=== PATIENT | female | born 1935 | race Caucasian/White ===

== ENCOUNTER 2017-12-23 13:23 | Inpatient (IN) | payer MEDICARE, MEDICAID ==
[~2017-12-23] VITALS: Ht 162.6 cm; Wt 68.0 kg
[~2017-12-23 13:23] MED LIST: AMBIEN5 MG ORAL; AMLODIPINE BESY10 MG ORAL; ATORVASTATIN CA20 MG ORAL; CARVEDILOL6.25 MG ORAL; DEPAKOTE500 MG PO; EFFEXOR XR37.5 MG ORAL; FISH OIL 1,2001 EAC2 PO; IRON18 M1 PO; LEVOTHYROXINE25 MCG ORAL; NORVASC2.5 MG ORAL; NUVIGIL150 MG PO; PANTOPRAZOLE SO40 MG ORAL; PROTONIX40 MG ORAL; PROZAC40 MG ORAL; QUETIAPINE FUM100 MG ORAL; SIMVASTATIN40 MG ORAL; SPIRIVA18 MCG INH; TOVIAZ4 MG PO; VITAMIN B COMP1 EAC2 ORAL; VITAMIN C500 M1 ORAL; WELLBUTRIN XL150 M1 ORAL
--- NOTE | 2017-12-23 13:42 | Emergency Room Report ---
History of Present Illness General Chief Complaint: To Be Triaged Source: Patient Present Illness HPI 82-year-old female, presenting with episode of right lower ext weakness. Patient states that she was eating lunch, suddenly felt that her right leg went very numb. States that she was dragging her right foot. Denies any headache, slurred speech, blurry vision. Patient states that a few minutes later she again her strength and sensation back. No other complaints Allergies: Coded Allergies: BUPROPION (Verified Allergy, dizziness, 08/09/13) added to allergies by Dr. Rodriguez Patient History Past Medical History: see triage record Past Surgical History: none Pertinent Family History: none Reviewed Nursing Documentation: PMH: Agreed, PSxH: Agreed Review of Systems All Other Systems: negative except mentioned in HPI Physical Exam Sp02 EP Interpretation: reviewed, normal General Appearance: normal inspection, well appearing, no apparent distress, alert, GCS 15, non-toxic Head: normocephalic, atraumatic Eyes: bilateral eye normal inspection, bilateral eye PERRL, bilateral eye EOMI ENT: normal ENT inspection, normal pharynx, normal voice, moist mucus membranes Neck: normal inspection, full range of motion, supple Respiratory: normal inspection, lungs clear, normal breath sounds, no respiratory distress, no retraction, no wheezing, speaking full sentences, chest symmetrical Cardiovascular #1: normal inspection, regular rate, rhythm, no edema, normal capillary refill Cardiovascular #2: 2+ radial (R), 2+ radial (L) Gastrointestinal: normal inspection, non tender, soft, non-distended, no guarding Musculoskeletal: normal inspection, back normal, normal range of motion, non- tender Neurologic: normal inspection, alert, oriented x3, responsive, auditing specialist III-XII nml as tested, motor strength/tone normal, sensory intact, speech normal Psychiatric: normal inspection, judgement/insight normal, memory normal Skin: normal inspection, normal color, no rash, warm/dry, well hydrated, normal turgor Medical Decision Making Diagnostic Impression: Primary Impression: TIA (transient ischemic attack) ER Course 82-year-old female with episode of right lower extremity weakness DDX: Rule out TIA/CVA Hypoglycemia Other electrolyte disturbance Plan: Obtain labs, ua, EKG, CXR CT head ER course: Patient has been monitored during ED stay, HD stable Remains awake alert and neurologically intact CT head is negative Disposition: Patient is to be admitted to [facility] Please note that this Emergency Department Report was dictated using Ideaxisb[employer] checker technology software, occasionally this can lead to erroneous entry secondary to interpretation by the dictation equipment. EKG Diagnostic Results EP Interpretation: Yes Rate: normal Rhythm: NSR ST Segments: TWI aVL ASA given to patient: No Rhythm Strip EP Interpretation: Yes Rate: 120 Rhythm: NSR, no PVCs, no ectopy Chest X-ray CXR: Ordered: Yes 1 view Indication:cva EP interpretation: Yes Interpretation: No consolidation, no effusion, no PTX, no acute cardiopulmonary disease, hepatic flexure visualized Impression: No acute disease Electronically signed by Marina Green MD Laboratory Tests Test 12/23/17 13:55 12/23/17 14:55 12/23/17 15:30 White Blood Count 8.2 K/UL (4.8-10.8) Red Blood Count 4.31 M/UL (4.20-5.40) Hemoglobin 13.0 G/DL (12.0-16.0) Hematocrit 39.1 % (37.0-47.0) Mean Corpuscular Volume 91 FL (80-99) Mean Corpuscular Hemoglobin 30.2 PG (27.0-31.0) Mean Corpuscular Hemoglobin Concent 33.4 G/DL (32.0-36.0) Red Cell Distribution Width 13.0 % (11.6-14.8) Platelet Count 250 K/UL (150-450) Mean Platelet Volume 6.1 FL (6.5-10.1) L Neutrophils (%) (Auto) 61.9 % (45.0-75.0) Lymphocytes (%) (Auto) 27.0 % (20.0-45.0) Monocytes (%) (Auto) 7.5 % (1.0-10.0) Eosinophils (%) (Auto) 2.4 % (0.0-3.0) Basophils (%) (Auto) 1.2 % (0.0-2.0) Prothrombin Time 10.0 SEC (9.30-11.50) Prothrombin Time INR 1.0 (0.9-1.1) PTT 29 SEC (23-33) Sodium Level 138 MMOL/L (136-145) Potassium Level 4.8 MMOL/L (3.5-5.1) Chloride Level 104 MMOL/L (98-107) Carbon Dioxide Level 28 MMOL/L (21-32) Anion Gap 6 mmol/L (5-15) Blood Urea Nitrogen 39 mg/dL (7-18) H Creatinine 2.7 MG/DL (0.55-1.30) H Estimate Glomerular Filtration Rate mL/min (>60) Glucose Level 105 MG/DL (74-106) Calcium Level 9.7 MG/DL (8.5-10.1) Total Bilirubin 0.2 MG/DL (0.2-1.0) Aspartate Amino Transferase (AST) 23 U/L (15-37) Alanine Aminotransferase (ALT) 21 U/L (12-78) Alkaline Phosphatase 102 U/L (46-116) Troponin I 0.006 ng/mL (0.000-0.056) Pro-B-Type Natriuretic Peptide 2586 pg/mL (0-125) H Total Protein 7.2 G/DL (6.4-8.2) Albumin 3.5 G/DL (3.4-5.0) Globulin 3.7 g/dL Albumin/Globulin Ratio 0.9 (1.0-2.7) L Urine Color Yellow Urine Appearance Clear Urine pH 6.5 (4.5-8.0) Urine Specific [place] 1.010 (1.005-1.035) Urine Protein 3+ (NEGATIVE) H Urine Glucose (UA) Negative (NEGATIVE) Urine Ketones Negative (NEGATIVE) Urine Occult Blood Negative (NEGATIVE) Urine Nitrite Negative (NEGATIVE) Urine Bilirubin Negative (NEGATIVE) Urine Urobilinogen Normal MG/DL (0.0-1.0) Urine Leukocyte Esterase 3+ (NEGATIVE) H Urine RBC 2-4 /HPF (0 - 2) H Urine WBC 15-20 /HPF (0 - 2) H Urine Squamous Epithelial Cells Moderate /LPF (NONE/OCC) H Urine Bacteria Occasional /HPF (NONE) C-Reactive Protein, Quantitative < 0.4 mg/dL (0.00-0.90) CT/MRI/US Diagnostic Results CT/MRI/US Diagnostic Results : Imaging Test Ordered: CT head Impression Impression: No acute intracranial bleed, mass effect or edema. Moderate atrophy of the brain. Evidence of chronic small vessel disease involving white matter tracts. Critical value communication. Findings were discussed via telephone with Dr. Green at 1:48 PM, 12/23/2017 . Disposition: ADMITTED INPATIENT Condition: Serious Marina Green M.D. Dec 23, 2017 13:42
--- NOTE | 2017-12-23 13:55 | Diagnostic Imaging Report ---
Indication: Right-sided weakness. Code stroke Technique: Contiguous 5 mm thick transaxial imaging of the head obtained in a Siemens Sensation [address] scanner. Soft tissue and bone windows generated. Automatic Exposure Control was utilized. Total Dose length Product (DLP): 1369.[address] Dose Index Volume (CTDIvol): 70.38 mGy Comparison: none Findings: There is moderate prominence of the ventricles, basal cisterns, and cerebral sulci consistent with atrophy. Moderate, nonspecific, white matter hypoattenuation is noted throughout the brain consistent with chronic small vessel disease. There is no midline shift, edema, acute hemorrhage, mass effect, or abnormal extra-axial fluid collections. Bones and extra osseous soft tissues are unremarkable. Impression: No acute intracranial bleed, mass effect or edema. Moderate atrophy of the brain. Evidence of chronic small vessel disease involving white matter tracts. Critical value communication. Findings were discussed via telephone with Dr. Green at 1:48 PM, 12/23/[address] scanner at [facility] is accredited by the [employer] and the scans are performed using dose optimization techniques as appropriate to a performed exam including Automatic Exposure control.
[2017-12-23 14:03] VITALS: BP 123/65
[2017-12-23 14:18] LABS: BASOPHILS % (AUTO) 1.2 % (0.0-2.0); EOSINOPHILS % (AUTO) 2.4 % (0.0-3.0); HEMATOCRIT 39.1 % (37.0-47.0); MEAN CORPUSCULAR VOLUME 91 FL (80-99); MONOCYTES % (AUTO) 7.5 % (1.0-10.0); NEUTROPHILS % (AUTO) 61.9 % (45.0-75.0); PLATELET COUNT 250 K/UL (150-450); RED BLOOD COUNT 4.31 M/UL (4.20-5.40); WHITE BLOOD COUNT 8.2 K/UL (4.8-10.8)
[2017-12-23 14:27] LABS: ANION GAP 6 mmol/L (5-15); BLOOD UREA NITROGEN 39 mg/dL (7-18); CALCIUM 9.7 MG/DL (8.5-10.1); CARBON DIOXIDE 28 MMOL/L (21-32); CHLORIDE 104 MMOL/L (98-107); CREATININE 2.7 MG/DL (0.55-1.30); POTASSIUM 4.8 MMOL/L (3.5-5.1); SODIUM 138 MMOL/L (136-145)
--- NOTE | 2017-12-23 14:35 | Diagnostic Imaging Report ---
Indication: Dyspnea Comparison: None A single view chest radiograph was obtained. Findings: There is a nodular density in the lateral aspect of the right mid lung. Heart size is normal. There is no definite infiltrate. There is suggestion of mild left basal atelectasis. Part of the hepatic flexure of the colon is seen just below the right hemidiaphragm. The aorta is mildly ectatic. Bones are osteopenic. There is a pacemaker on the left. IMPRESSION: Suspected solitary pulmonary nodule the right peripheral midlung. Suggest further workup and clinical evaluation. Interposition of the hepatic flexure between the diaphragm and liver. This is a normal variant. Pacemaker. Osteoporosis
[2017-12-23 14:38] LABS: ALANINE AMINOTRANSFERASE 21 U/L (12-78); ALBUMIN 3.5 G/DL (3.4-5.0); ALBUMIN/GLOBULIN RATIO 0.9 (1.0-2.7); ALKALINE PHOSPHATASE 102 U/L (46-116); ASPARTATE AMINO TRANSFERASE 23 U/L (15-37); BILIRUBIN,TOTAL 0.2 MG/DL (0.2-1.0)
[2017-12-23 15:00] VITALS: BP 173/79
[2017-12-23 15:28] LABS: APPEARANCE,URINE CLEAR; BILIRUBIN, URINE NEGATIVE (NEGATIVE); COLOR,URINE YELLOW; GLUCOSE, URINE (UA) NEGATIVE (NEGATIVE); KETONES,URINE NEGATIVE (NEGATIVE); LEUKOCYTE ESTERASE ,URINE 3+ (NEGATIVE); NITRITE,URINE NEGATIVE (NEGATIVE); PH,URINE 6.5 (4.5-8.0); PROTEIN,URINE 3+ (NEGATIVE); UROBILINOGEN,URINE NORMAL MG/DL (0.0-1.0)
[2017-12-23 16:00] VITALS: BP 172/72
--- NOTE | 2017-12-23 16:40 | Consultation ---
Consult Note Consult Note asked to eval for renal failure HPI 82-year-old female, presenting with episode of right lower beebe he weakness. Patient states that she was eating lunch, suddenly felt that her right leg went very numb. States that she was dragging her right foot. Denies any headache, slurred speech, blurry vision. Patient states that a few minutes later she again her strength and sensation back. No other complaints Allergies: Coded Allergies: BUPROPION (Verified Allergy, dizziness, 08/09/13) added to allergies by Dr. 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
[2017-12-23] MEDS ORDERED: HydrALAZINE 25mg tab ORAL PRN (16:45)
[2017-12-23] MEDS: Docusate 100mg cap ORAL SCH (18:42)
[2017-12-23] MEDS: cefTRIAXone 1 GM in NS 55 ML IVPB SCH (18:44)
[2017-12-23] MEDS ORDERED: Acetaminophen 500mg (ES) tab ORAL PRN (19:15)
[2017-12-23 20:00] VITALS: BP 178/82
[2017-12-23] MEDS: Atorvastatin 20mg tab ORAL SCH (21:17)
[2017-12-23] MEDS: Carvedilol 6.25mg Tab ORAL SCH (21:17)
[2017-12-24] VITALS: BP 153/70
[2017-12-24 04:00] VITALS: BP 150/65
[2017-12-24 07:29] LABS: EOSINOPHILS % (AUTO) 3.2 % (0.0-3.0); HEMOGLOBIN 12.9 G/DL (12.0-16.0); LYMPHOCYTES % (AUTO) 25.6 % (20.0-45.0); MEAN CORPUSCULAR VOLUME 90 FL (80-99); MONOCYTES % (AUTO) 7.4 % (1.0-10.0); NEUTROPHILS % (AUTO) 62.8 % (45.0-75.0); PLATELET COUNT 229 K/UL (150-450); RED BLOOD COUNT 4.24 M/UL (4.20-5.40); WHITE BLOOD COUNT 8.1 K/UL (4.8-10.8)
[2017-12-24 08:00] VITALS: BP 134/88
[2017-12-24 08:03] LABS: ALANINE AMINOTRANSFERASE 21 U/L (12-78); ALBUMIN 3.4 G/DL (3.4-5.0); ALBUMIN/GLOBULIN RATIO 0.9 (1.0-2.7); ALKALINE PHOSPHATASE 93 U/L (46-116); ANION GAP 8 mmol/L (5-15); ASPARTATE AMINO TRANSFERASE 22 U/L (15-37); BILIRUBIN,TOTAL 0.4 MG/DL (0.2-1.0); BLOOD UREA NITROGEN 37 mg/dL (7-18); CALCIUM 9.9 MG/DL (8.5-10.1); CARBON DIOXIDE 27 MMOL/L (21-32); CHLORIDE 105 MMOL/L (98-107); CHOLESTEROL 230 MG/DL (< 200); CREATININE 2.7 MG/DL (0.55-1.30); GAMMA GLUTAMYL TRANSPEPTIDASE 35 U/L (5-85); HDL CHOLESTEROL 57 MG/DL (40-60); PHOSPHORUS 3.6 MG/DL (2.5-4.9); POTASSIUM 5.2 MMOL/L (3.5-5.1); SODIUM 140 MMOL/L (136-145); TRIGLYCERIDES 186 MG/DL (30-150)
--- NOTE | 2017-12-24 09:48 | Nephrology Progress Note ---
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 Plan Plan: Renal diet Rocephin- Kidney LIEN 2D Echo Monitor renal parameters per orders pulm eval Subjective ROS Limited/Unobtainable: No Objective Objective Last 24 Hour Vital Signs Date Time Temp Pulse Resp B/P (MAP) Pulse Ox O2 Delivery O2 Flow Rate FiO2 12/24/17 04:00 60 12/24/17 04:00 97.3 61 19 150/65 91 97.3 12/24/17 00:00 97.5 60 20 153/70 92 Room Air 97.5 12/24/17 00:00 60 12/23/17 21:17 60 178/82 12/23/17 20:00 96.4 60 20 178/82 93 Room Air 96.4 12/23/17 20:00 60 12/23/17 18:43 60 188/84 12/23/17 16:15 98.2 60 19 172/72 97 Room Air 98.2 12/23/17 16:00 60 19 172/72 97 Room Air 12/23/17 15:00 90 19 173/79 97 Room Air 12/23/17 14:03 98.2 62 19 123/65 97 Room Air 98.2 12/23/17 13:25 67 16 123/65 94 Room Air Intake and Output 12/23/17 12/24/17 19:00 07:00 Intake Total 240 ml Balance 240 ml Intake Oral 240 ml # Voids 1 3 Laboratory Tests 12/23/17 13:55: White Blood Count 8.2, Red Blood Count 4.31, Hemoglobin 13.0, Hematocrit 39.1, Mean Corpuscular Volume 91, Mean Corpuscular Hemoglobin 30.2, Mean Corpuscular Hemoglobin Concent 33.4, Red Cell Distribution Width 13.0, Platelet Count 250, Mean Platelet Volume 6.1L, Neutrophils (%) (Auto) 61.9, Lymphocytes (%) (Auto) 27.0, Monocytes (%) (Auto) 7.5, Eosinophils (%) (Auto) 2.4, Basophils (%) (Auto ) 1.2, Prothrombin Time 10.0, Prothromb Time International Ratio 1.0, Activated Partial Thromboplast Time 29, Sodium Level 138, Potassium Level 4.8, Chloride Level 104, Carbon Dioxide Level 28, Anion Gap 6, Blood Urea Nitrogen 39H, Creatinine 2.7H, Estimat Glomerular Filtration Rate , Glucose Level 105, Calcium Level 9.7, Total Bilirubin 0.2, Aspartate Amino Transf (AST/SGOT) 23, Alanine Aminotransferase (ALT/SGPT) 21, Alkaline Phosphatase 102, Troponin I 0.006, Pro-B-Type Natriuretic Peptide 2586H, Total Protein 7.2, Albumin 3.5, Globulin 3.7, Albumin/Globulin Ratio 0.9L 12/23/17 14:55: Urine Color Yellow, Urine Appearance Clear, Urine pH 6.5, Urine Specific [place] 1.010, Urine Protein 3+H, Urine Glucose (UA) Negative, Urine Ketones Negative, Urine Occult Blood Negative, Urine Nitrite Negative, Urine Bilirubin Negative, Urine Urobilinogen Normal, Urine Leukocyte Esterase 3+H, Urine RBC 2- 4H, Urine WBC 15-20H, Urine Squamous Epithelial Cells ModerateH, Urine Bacteria Occasional 12/23/17 15:30: C-Reactive Protein, Quantitative < 0.4 12/24/17 04:35: Urine Eosinophils None seen, Urine Random Sodium 71 12/24/17 06:50: White Blood Count 8.1, Red Blood Count 4.24, Hemoglobin 12.9, Hematocrit 38.0, Mean Corpuscular Volume 90, Mean Corpuscular Hemoglobin 30.4, Mean Corpuscular Hemoglobin Concent 33.9, Red Cell Distribution Width 13.0, Platelet Count 229, Mean Platelet Volume 5.9L, Neutrophils (%) (Auto) 62.8, Lymphocytes (%) (Auto) 25.6, Monocytes (%) (Auto) 7.4, Eosinophils (%) (Auto) 3.2H, Basophils (%) (Auto ) 1.0, Sodium Level 140, Potassium Level 5.2H, Chloride Level 105, Carbon Dioxide Level 27, Anion Gap 8, Blood Urea Nitrogen 37H, Creatinine 2.7H, Estimat Glomerular Filtration Rate , Glucose Level 89, Hemoglobin A1c 5.9, Uric Acid 7.5H, Calcium Level 9.9, Phosphorus Level 3.6, Magnesium Level 2.4, Total Bilirubin 0.4, Gamma Glutamyl Transpeptidase 35, Aspartate Amino Transf (AST/ SGOT) 22, Alanine Aminotransferase (ALT/SGPT) 21, Alkaline Phosphatase 93, Troponin I 0.006, Pro-B-Type Natriuretic Peptide 3774H, Total Protein 7.1, Albumin 3.4, Globulin 3.7, Albumin/Globulin Ratio 0.9L, Triglycerides Level 186H , Cholesterol Level 230H, LDL Cholesterol 133H, HDL Cholesterol 57, Cholesterol/ HDL Ratio 4.0, Thyroid Stimulating Hormone (TSH) 1.893 Height (Feet): 5 Height (Inches): 4.00 Weight (Pounds): 150 General Appearance: no apparent distress Cardiovascular: regular rhythm, pacemaker/AICD Respiratory/Chest: decreased breath sounds Abdomen: soft YUMIKO LOZADA Dec 24, 2017 09:48
[2017-12-24] MEDS: Docusate 100mg cap ORAL SCH ×2 (10:30→17:01)
[2017-12-24] MEDS: Carvedilol 6.25mg Tab ORAL SCH ×2 (10:30→21:21)
[2017-12-24] MEDS: Levothyroxine 25mcg tab ORAL SCH (10:30)
[2017-12-24] MEDS: D5 1/2NS 1,000 ML IV SCH ×2 (10:37→23:50)
--- NOTE | 2017-12-24 10:39 | Neurology Progress Note ---
Interim History Interim History ROS Limited/Unobtainable: No Objective Physical Exam Last Vital Signs Date Time Temp Pulse Resp B/P (MAP) Pulse Ox O2 Delivery O2 Flow Rate FiO2 12/24/17 10:31 63 134/88 12/24/17 04:00 97.3 19 91 97.3 12/24/17 00:00 Room Air Laboratory Tests Test 12/23/17 13:55 12/23/17 14:55 12/23/17 15:30 12/24/17 04:35 White Blood Count 8.2 K/UL (4.8-10.8) Red Blood Count 4.31 M/UL (4.20-5.40) Hemoglobin 13.0 G/DL (12.0-16.0) Hematocrit 39.1 % (37.0-47.0) Mean Corpuscular Volume 91 FL (80-99) Mean Corpuscular Hemoglobin 30.2 PG (27.0-31.0) Mean Corpuscular Hemoglobin Concent 33.4 G/DL (32.0-36.0) Red Cell Distribution Width 13.0 % (11.6-14.8) Platelet Count 250 K/UL (150-450) Mean Platelet Volume 6.1 FL (6.5-10.1) L Neutrophils (%) (Auto) 61.9 % (45.0-75.0) Lymphocytes (%) (Auto) 27.0 % (20.0-45.0) Monocytes (%) (Auto) 7.5 % (1.0-10.0) Eosinophils (%) (Auto) 2.4 % (0.0-3.0) Basophils (%) (Auto) 1.2 % (0.0-2.0) Prothrombin Time 10.0 SEC (9.30-11.50) Prothromb Time International Ratio 1.0 (0.9-1.1) Activated Partial Thromboplast Time 29 SEC (23-33) Sodium Level 138 MMOL/L (136-145) Potassium Level 4.8 MMOL/L (3.5-5.1) Chloride Level 104 MMOL/L (98-107) Carbon Dioxide Level 28 MMOL/L (21-32) Anion Gap 6 mmol/L (5-15) Blood Urea Nitrogen 39 mg/dL (7-18) H Creatinine 2.7 MG/DL (0.55-1.30) H Estimat Glomerular Filtration Rate mL/min (>60) Glucose Level 105 MG/DL (74-106) Calcium Level 9.7 MG/DL (8.5-10.1) Total Bilirubin 0.2 MG/DL (0.2-1.0) Aspartate Amino Transf (AST/SGOT) 23 U/L (15-37) Alanine Aminotransferase (ALT/SGPT) 21 U/L (12-78) Alkaline Phosphatase 102 U/L (46-116) Troponin I 0.006 ng/mL (0.000-0.056) Pro-B-Type Natriuretic Peptide 2586 pg/mL (0-125) H Total Protein 7.2 G/DL (6.4-8.2) Albumin 3.5 G/DL (3.4-5.0) Globulin 3.7 g/dL Albumin/Globulin Ratio 0.9 (1.0-2.7) L Urine Color Yellow Urine Appearance Clear Urine pH 6.5 (4.5-8.0) Urine Specific [place] 1.010 (1.005-1.035) Urine Protein 3+ (NEGATIVE) H Urine Glucose (UA) Negative (NEGATIVE) Urine Ketones Negative (NEGATIVE) Urine Occult Blood Negative (NEGATIVE) Urine Nitrite Negative (NEGATIVE) Urine Bilirubin Negative (NEGATIVE) Urine Urobilinogen Normal MG/DL (0.0-1.0) Urine Leukocyte Esterase 3+ (NEGATIVE) H Urine RBC 2-4 /HPF (0 - 2) H Urine WBC 15-20 /HPF (0 - 2) H Urine Squamous Epithelial Cells Moderate /LPF (NONE/OCC) H Urine Bacteria Occasional /HPF (NONE) C-Reactive Protein, Quantitative < 0.4 mg/dL (0.00-0.90) Urine Eosinophils None seen Urine Random Sodium 71 MEQ/L (20-110) Test 12/24/17 06:50 White Blood Count 8.1 K/UL (4.8-10.8) Red Blood Count 4.24 M/UL (4.20-5.40) Hemoglobin 12.9 G/DL (12.0-16.0) Hematocrit 38.0 % (37.0-47.0) Mean Corpuscular Volume 90 FL (80-99) Mean Corpuscular Hemoglobin 30.4 PG (27.0-31.0) Mean Corpuscular Hemoglobin Concent 33.9 G/DL (32.0-36.0) Red Cell Distribution Width 13.0 % (11.6-14.8) Platelet Count 229 K/UL (150-450) Mean Platelet Volume 5.9 FL (6.5-10.1) L Neutrophils (%) (Auto) 62.8 % (45.0-75.0) Lymphocytes (%) (Auto) 25.6 % (20.0-45.0) Monocytes (%) (Auto) 7.4 % (1.0-10.0) Eosinophils (%) (Auto) 3.2 % (0.0-3.0) H Basophils (%) (Auto) 1.0 % (0.0-2.0) Sodium Level 140 MMOL/L (136-145) Potassium Level 5.2 MMOL/L (3.5-5.1) H Chloride Level 105 MMOL/L (98-107) Carbon Dioxide Level 27 MMOL/L (21-32) Anion Gap 8 mmol/L (5-15) Blood Urea Nitrogen 37 mg/dL (7-18) H Creatinine 2.7 MG/DL (0.55-1.30) H Estimat Glomerular Filtration Rate mL/min (>60) Glucose Level 89 MG/DL (74-106) Hemoglobin A1c 5.9 % (4.3-6.0) Uric Acid 7.5 MG/DL (2.6-7.2) H Calcium Level 9.9 MG/DL (8.5-10.1) Phosphorus Level 3.6 MG/DL (2.5-4.9) Magnesium Level 2.4 MG/DL (1.8-2.4) Total Bilirubin 0.4 MG/DL (0.2-1.0) Gamma Glutamyl Transpeptidase 35 U/L (5-85) Aspartate Amino Transf (AST/SGOT) 22 U/L (15-37) Alanine Aminotransferase (ALT/SGPT) 21 U/L (12-78) Alkaline Phosphatase 93 U/L (46-116) Troponin I 0.006 ng/mL (0.000-0.056) Pro-B-Type Natriuretic Peptide 3774 pg/mL (0-125) H Total Protein 7.1 G/DL (6.4-8.2) Albumin 3.4 G/DL (3.4-5.0) Globulin 3.7 g/dL Albumin/Globulin Ratio 0.9 (1.0-2.7) L Triglycerides Level 186 MG/DL (30-150) H Cholesterol Level 230 MG/DL (< 200) H LDL Cholesterol 133 mg/dL (<100) H HDL Cholesterol 57 MG/DL (40-60) Cholesterol/HDL Ratio 4.0 (3.3-4.4) Thyroid Stimulating Hormone (TSH) 1.893 uiU/mL (0.358-3.740) Impression/Recommendations Problems: (1) TIA (transient ischemic attack) (2) UTI (urinary tract infection) (3) CKD (chronic kidney disease) (4) 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
--- NOTE | 2017-12-24 11:44 | Diagnostic Imaging Report ---
Indication: Acute renal failure Technique: Grayscale and duplex images of the kidneys, retroperitoneum, and bladder Comparison: none Findings: Right kidney measures 8.6 cm in length. Left kidney measures 6.9 cm in length. Both kidneys demonstrate mildly increased echogenicity. There is mild right hydronephrosis. Note, however, that bilateral ureteral jets were noted in the bladder. There are bilateral renal cysts. Postvoid bladder volume 84 mL Impression: Bilateral slightly small mildly echogenic kidneys suggests medical renal disease Mild right hydronephrosis. Etiology not demonstrated Bilateral renal cysts 84 mL postvoid bladder volume
[2017-12-24 12:00] VITALS: BP 171/86
--- NOTE | 2017-12-24 13:15 | Diagnostic Imaging Report ---
APPROVED REPORT CPT Code: 27646 Vascular Symptoms CVA/TIA: Doppler Spectral Velocity Analysis RightLeft BILATERAL: CCA - Imaging reveals no significant plaque in the right and left common external carotid arteries. The Doppler signal indicates the degree of stenosis is minimal (10% - 20%) in the right internal and external carotid arteries and in the left internal and external carotid arteries. VERTEBRAL- The vertebral arteries are patent without evidence of stenosis or steal.
--- NOTE | 2017-12-24 15:59 | Cardiology Report ---
APPROVED REPORT EKG Measurement Heart [id number] Sinus rhythm with frequent A-V paced beats. Atrioventricular Interval in Pacemaker Abnormal ECG
[2017-12-24 16:00] VITALS: BP 151/80
--- NOTE | 2017-12-24 16:19 | Cardiology Report ---
APPROVED REPORT EXAM: Two-dimensional and M-mode echocardiogram with Doppler and color Doppler. INDICATION Congestive Heart Failure M-Mode DIMENSIONS IVSd1.3 (0.7-1.1cm)Left Atrium (MM)3.3 (1.6-4.0cm) LVDd3.9 (3.5-5.6cm)Aortic Root3.2 (2.0-3.7cm) PWd1.2 (0.7-1.1cm)Aortic Cusp Exc.1.7 (1.5-2.0cm) LVDs2.9 (2.5-4.0cm) PWs1.5 cm Normal left ventricular chamber size, systolic function and wall motion. Left ventricular ejection fraction estimated to be 60-65%. Mild left ventricular hypertrophy. No evidence of pericardial or pleural effusion. Right cardiac chamber sizes are within normal limits. Mild left atrial enlargement by 2D. Focal aortic valve sclerosis with adequate cusp excursion. Thickened mitral valve leaflets with normal excursion. Mild mitral annulus and aortic root calcification. Pulmonic valve is well visualized. Normal tricuspid valve structure. IVC is normal in size and collapsible with respiration. Probable pacemaker wire present in the right side chambers. A color flow and spectral Doppler study was performed and revealed: No aortic regurgitation. Moderate mitral regurgitation. Mitral diastolic velocities suggest reduced left ventricular relaxation c/w diastolic dysfunction grade 1. Trace tricuspid regurgitation. Tricuspid systolic velocities suggests peak right ventricular systolic pressure of 34 mmHg
[2017-12-24] MEDS: cefTRIAXone 1 GM in NS 55 ML IVPB SCH (17:01)
--- NOTE | 2017-12-24 18:16 | Consultation ---
DATE OF CONSULTATION: 12/24/2017 NEUROLOGICAL CONSULTATION CONSULTING PHYSICIAN: Bashir Martinez M.D. REQUESTING PHYSICIAN: Evon Blackwood M.D. HISTORY OF PRESENT ILLNESS: This 82-year-old female seen in neurological consultation to evaluate a transient right lower extremity weakness. According to the patient, she attended psychology group session, "Reflection." After sitting for 30 minutes at the session, she got up. She felt numbness in her right foot, wobbly right foot. She tried to walk, but could not stand on her right leg and fell to the chair. Within a minute, symptoms resolved and she was able to ambulate. Her blood pressure at that time sharply up, 194/87, which was unusual. With this, she was brought to emergency room for assessment. The patient indicated she was eating lunch when she suddenly felt that her right leg went numb. She was also stating that she was dragging her right foot, but there was no other associated symptomatology. Upon arrival to the emergency room, her Osiris Coma Scale was 15. Neurological examination was intact. Her initial diagnostic studies included lab work with normal CBC, normal coagulation panel. Urinalysis with WBCs 15 to 20, 2+ leukocyte esterase. Chemistry panel was abnormal with BUN of 39 and creatinine 2.7. Elevated BNP 2586. Elevated lipid panel with cholesterol 230, LDL of 133, and triglycerides 186 with normal TSH. Her imaging studies included CT of the brain, which revealed moderate atrophy and chronic small vessel disease. No evidence of acute intracranial abnormalities detected. Her chest x-ray pulmonary nodule, midline. Further workup was recommended. Pacemaker was in place. Since admission till present, there was no further paroxysmal event. The patient recalled that she had a "bad right leg" relating to arthritis in her right knee causing occasional buckling in her right leg. She is using cane to protect from falling. PAST MEDICAL HISTORY: Cardiac arrhythmia required pacemaker placement, CHF, bipolar disorder, osteoarthritis, and hyperlipidemia. MEDICATIONS: Her treatment includes atorvastatin, carvedilol, aspirin, Depakote 250 mg at bedtime, fish oil, Prozac 30 mg at bedtime, levothyroxine 25 mcg daily, pantoprazole, Seroquel 100 mg at bedtime, Spiriva, and vitamin B complex. ALLERGIES: Wellbutrin. FAMILY HISTORY: Noncontributory. SOCIAL HISTORY: Lives alone, has a caregiver and supportive daughter. No alcohol. No drug abuse. Nonsmoker. She is attending Reflection Program at [facility]. REVIEW OF SYMPTOMS: The patient denies headache or dizziness. No chest pain. No palpitations. No respiratory problems. Denies abdominal pain or discomfort. No urine or bowel incontinence. Right knee pain. PHYSICAL EXAMINATION: GENERAL: This is a well-developed, well-nourished, pleasant lady, not in acute distress. VITAL SIGNS: Now are stable. Blood pressure 150/65. HEENT: Head, normocephalic. No evidence of trauma. Eyes, ears, and throat are clear. NECK: Supple. No meningeal signs. MUSCULOSKELETAL: Unremarkable. There are no deformities. Peripheral pulses 1+ symmetric. MENTAL STATUS EXAMINATION: She is alert and oriented x3. No evidence of aphasia or apraxia. Cognitive function normal. CRANIAL NERVE II: Pupils both responding to light and accommodation. Extraocular movements intact. No nystagmus. CRANIAL NERVE V: Normal corneal responses. CRANIAL NERVE VII: No facial asymmetry. CRANIAL NERVE VIII: Normal hearing. CRANIAL NERVE IX THROUGH XII: With normal limits. MOTOR EXAMINATION: Normal muscle tone and strength 5/5 in all extremities. No involuntary movements. Deep tendon reflexes 1+ symmetric with downgoing toes on both sides. SENSORY EXAM: Normal to pinprick and light touch. GAIT: Slow, slight limp to the right. IMPRESSION: 1. Left middle cerebral artery distribution transient ischemic attack, resolved. 2. Right knee osteoarthritis with abnormal gait. 3. Ischemic cerebrovascular disease. 4. Hypertension. 5. Congestive heart failure. 6. Chronic renal insufficiency. 7. Pacemaker in place. 8. Hyperlipidemia. 9. Bipolar disorder. RECOMMENDATIONS: The patient to continue with IV fluids, antibiotics for underlying UTI. She will continue with aspirin and statins. We will add Plavix 75 mg daily one month. Check carotid duplex study and 2D echocardiogram. Maintain strict blood pressure control. Thank you for allowing me to see this interesting patient in neurological consultation. Bashir Martinez M.D. DR: DANIELLE JOB#: [id number] CC:
[2017-12-24 20:00] VITALS: BP 140/65
--- NOTE | 2017-12-24 20:47 | Consultation ---
DATE OF CONSULTATION: 12/24/2017 CONSULTING PHYSICIAN: Pawel Willis M.D. HISTORY: The patient is an 82-year-old female with a history of bipolar disorder, who has been admitted due to lower beebe weakness. The patient has a history of renal failure. The patient apparently was eating lunch and fell and hurt her right leg and feeling numb. The patient is also having irritable mood, depressed mood, anxiety, and insomnia. The patient has been not prescribed Seroquel the night before and stated that she did not sleep last night. PAST PSYCHIATRIC HISTORY: Bipolar disorder, has been hospitalized before, had been on Seroquel for long time and has been treated with 100 mg. ALLERGIES: Bupropion. PAST MEDICAL HISTORY: UTI, hypertension, hypothyroidism, and renal failure. SUBSTANCE ABUSE HISTORY: No known history of illicit drug use or alcohol. MENTAL STATUS EXAMINATION: Alert and oriented x3. Hard of hearing. Mood is depressed. Affect is constricted, congruent with mood. Thought process is concrete. Thought content, no suicidal or homicidal ideations. ASSESSMENT: Depression. PLAN: 1. We will continue with the current medication. 2. Provide the patient with supportive therapy and reality orientation. Pawel Willis M.D. DR: JOCELYN JOB#: [id number] CC:
[2017-12-24] MEDS: Atorvastatin 20mg tab ORAL SCH (21:21)
[2017-12-25] VITALS: BP 129/58
[2017-12-25 04:00] VITALS: BP 120/72
--- NOTE | 2017-12-25 05:17 | History and Physical Report ---
DATE OF ADMISSION: 12/23/2017 NOTE: POOR AUDIO HISTORY OF PRESENT ILLNESS: This is a long-time patient of mine from the office. The patient was going through her routine program when her right foot gave out and she almost fell due to weakness that was acute in onset yesterday around noontime and on the left foot. The patient did not have any upper extremity weakness. The patient also denied headache. Denied diplopia. Denied any change in vision and denied any paresthesia associated with it. The patient, however, does have chronic knee pain, right knee worse than the left knee. The patient also was found incidentally to have pulmonary nodule and the patient does have chronic renal insufficiency as well. The patient denied change in the vision pattern or speech pattern. This episode briefly resolved, however, the patient wanted to come to the hospital, hence she was brought to the hospital for rule out TIA versus evolving stroke. PAST MEDICAL HISTORY: Significant basically for chronic renal insufficiency. The patient also has history of hyperlipidemia, mood disorder, hypothyroidism, GERD, psychosis, arrhythmia, and hypertension. PAST SURGICAL HISTORY: Appendectomy and pacemaker. MEDICATIONS: Vitamin C, Lipitor, Coreg, Depakote, Levoxyl, Protonix, and Seroquel. ALLERGIES: Bupropion. SOCIAL HISTORY: The patient does smoke. Lives at home. Denies history of drug or alcohol abuse. FAMILY HISTORY: Denies history of any lung cancer in the family. REVIEW OF SYSTEMS: HEENT: Denies headaches. RESPIRATORY: Denies shortness of breath. Denies cough. CARDIOVASCULAR: Denies chest pain. GASTROINTESTINAL: Denies nausea, vomiting, or diarrhea. EXTREMITY: She does have chronic right knee pain. CENTRAL NERVOUS SYSTEM: Denies change in vision or speech pattern. She did have left-sided foot weakness that made her to fall due to the weakness noontime and symptoms resolved a couple of hours later, but is being admitted to rule out TIA versus evolving CVA. PHYSICAL EXAMINATION: VITAL SIGNS: Basically temperature is 97.5 degrees, pulse is 60, and blood pressure 163/70. The patient also had elevated blood pressure yesterday. HEENT: PERRLA. NECK: Supple. No lymphadenopathy. CHEST: Clear to auscultation. CARDIOVASCULAR: Irregularly irregular. GASTROINTESTINAL: Soft. Positive bowel sounds. No organomegaly. EXTREMITY: There is 1+ edema. Reflexes equal on both sides. NEUROLOGIC: At this point, does not have any neurological deficit or disorder. Motor strength is equal on both sides and cranial nerves intact. LABORATORY AND DIAGNOSTIC DATA: WBC of 8.2, hemoglobin of 13, and platelets of 250. Sodium 138, potassium 4.8, BUN 39, and creatinine 2.7. CT was negative report for anything acute. ASSESSMENT AND PLAN: Transient ischemic attack versus evolving stroke. The patient also was found to have incidental pulmonary nodules on the imaging. So, for the elevated blood pressure and for acute renal failure as well as for transient ischemic attack versus cerebrovascular accident, I have asked basically Dr. Martinez, Dr. Collins, Dr. Barnhart, Dr. Carreon, and Dr. Willis to see the patient for the above-mentioned diagnoses and treatment as well as for the diagnosis of her mood disorder as well as psychosis. Evon Blackwood M.D. DR: ROSHAN JOB#: [id number] CC:
--- NOTE | 2017-12-25 05:31 | Consultation ---
DATE OF CONSULTATION: 12/24/2017 NOTE: POOR AUDIO HEMATOLOGY/ONCOLOGY CONSULTATION CONSULTING PHYSICIAN: Hakeem Barnhart M.D. REQUESTING PHYSICIAN: Evon Blackwood M.D. REASON FOR CONSULTATION: Evaluation of pulmonary nodule. IDENTIFYING DATA: Dear Dr. Blackwood, The patient is a pleasant 82-year-old female with past medical history significant for pacemaker placement, hypertension, history of CKD, at this time presents with episode of right lower extremity weakness right leg was numb. Denies any headache, fevers, or chills. , presented to the ER, had a head CT, which showed moderate atrophy, no acute intracranial process. In addition, duplex of lower extremity was done and carotid ultrasound showed plaques. DVT study has not been resulted yet. Chest x-ray reviewed shows solitary pulmonary nodule workup at this time with the recommendations. We will obtain a CAT scan of the chest the patient has a creatinine of 2.7 . PAST MEDICAL HISTORY: As noted above, pacemaker placement, hypertension, in the past. PAST SURGICAL HISTORY: Pacemaker placement. FAMILY HISTORY: Noncontributory. SOCIAL HISTORY: No alcohol, tobacco, or illicit drug use. REVIEW OF SYSTEMS: CONSTITUTIONAL: No fevers, chills, or night sweats. SKIN: No rashes, bumps, or itching. HEENT: No headache, hearing or vision changes. BREASTS: No lumps, pain, or discharge. PULMONARY: No cough, sputum, or shortness of breath. GASTROINTESTINAL: No nausea, vomiting, or diarrhea. GENITOURINARY: No dysuria, frequency, or urgency. MUSCULOSKELETAL: No joint swelling, muscle pain, or trauma. PHYSICAL EXAMINATION: VITAL SIGNS: Reviewed. GENERAL: No distress. PULMONARY: Decreased breath sounds. CARDIOVASCULAR: Regular rate. No S3 or S4. ABDOMEN: Soft, nontender, and nondistended. EXTREMITIES: No cyanosis, swelling, or edema. LABORATORY DATA: Troponin is 0.006. BUN of 27 and creatinine 2.7. . WBC 8.1, hemoglobin 12.9, hematocrit 38, and platelet count 229,000. IMAGING: Chest x-ray reviewed showed pulmonary nodule. ASSESSMENT AND RECOMMENDATION: 1. Pulmonary nodule noted on chest x-ray. Consider to obtain CAT scan of the chest without contrast for further evaluation and treatment. Consider CT-guided biopsy if nodule greater than 3 cm and/or irregular borders. Consider pulmonary evaluation. 2. continue to closely monitor for improvement. 3. Pacemaker placement. Monitor per Cardiology. 4. Acute kidney injury/chronic kidney disease, creatinine currently 2.7. . 5. Hypothyroidism. 6. Pulmonary evaluation. I appreciate the consultation. Hakeem Barnhart M.D. DR: Juan José JOB#: [id number] CC:
[2017-12-25 08:00] VITALS: BP 158/49
[2017-12-25] MEDS: Docusate 100mg cap ORAL SCH ×2 (10:13→17:57)
[2017-12-25] MEDS: Carvedilol 6.25mg Tab ORAL SCH ×2 (10:14→21:05)
[2017-12-25] MEDS: Levothyroxine 25mcg tab ORAL SCH (10:19)
--- NOTE | 2017-12-25 11:03 | Neurology Progress Note ---
Interim History Interim History ROS Limited/Unobtainable: No Complaints: feel ok, R knee pain Events: stable Objective Physical Exam Last Vital Signs Date Time Temp Pulse Resp B/P (MAP) Pulse Ox O2 Delivery O2 Flow Rate FiO2 12/25/17 10:14 75 158/79 12/25/17 08:00 97.9 18 99 Room Air 97.9 General: well developed, well nourished, no acute distress Head: normocophalic, atraumatic Neck: no rigidity Neurologic Exam Mental Status: awake, alert, oriented x4, normal cognition, good mathematical skills, normal recent memory, normal remote memory, preserved visuospatial function Speech: normal speech, no dysarthia Language: normal language, no aphasia Cranial Nerve II: fundus normal, visual guido, no papilledema Cranial Nerves III, IV, : PERRLA, EOMI, pupils Cranial Nerve V: normal facial sensations, temporales function normal, masseters function normal, pterygoids function normal Cranial Nerve VII: no facial asymmetry, normal facial expressions Cranial Nerve VIII: normal hearing, no nystagmus Cranial Nerve IX: normal palate elevation, gag response Cranial Nerve X: no voice hoarseness Cranial Nerve XI: SCM symmetric, trapezii function normal Cranial Nerve XII: tongue midline, no tongue atrophy/fasciculations Motor System: normal muscle tone, strength 5/5, no involuntary movement, no muscle wasting Sensory: normal pinprick, normal light touch, normal position sense, normal graphesthesia Coordination: normal finger to nose bilaterally, normal heel to beebe bilaterally, negative Romberg test Deep Tendon Reflexes: 1+ bicep (L), 1+ bicep (R), 1+ tricep (L), 1+ tricep (R) , 1+ brachioradialis (L), 1+ brachioradialis (R), 1+ knee (L), 1+ knee (R), 1+ ankle (L), 1+ ankle (R) Reflexes: mute plantar (L), mute plantar (R) Stance: normal Gait: stable, normal regular, heel + toe gait Impression/Recommendations Problems: (1) TIA (transient ischemic attack) (2) UTI (urinary tract infection) (3) CKD (chronic kidney disease) (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
--- NOTE | 2017-12-25 11:51 | Diagnostic Imaging Report ---
Clinical Indication: Chest pain, suspected pulmonary nodule on recent chest radiograph Technique: Spiral acquisitions obtained through the chest. No IV contrast utilized, . Multiplanar reconstructions generated. Total dose length product 571.7 mGycm. CTDIvol(s) 15.98 mGy. Dose reduction achieved using automated exposure control Comparison: Reference made to chest radiograph dated 12/23/2017 Findings: There is a 14 x 14 mm mass in the inferolateral periphery of the right upper lobe. This is subpleural in location, abutting both the lateral pleural surface and the minor fissure. The lungs are diffusely mildly hyperinflated. Scarring is seen in the superior segment of the right lower lobe. Some fibrotic changes are seen in the posterior inferior right lower lobe. Some scarring is also seen in the left lower lobe. This is associated with some volume loss as well as some bronchiectasis. No acute infiltrates. No effusions or congestion. The heart size is normal. There is a biventricular pacemaker in place. No mediastinal or hilar mass or adenopathy. Unremarkable thyroid. No axillary or supraclavicular mass or adenopathy. The bones are unremarkable. The included upper abdominal anatomy is unremarkable. Impression: 14 x 14 mm mass in the inferolateral right upper lobe, corresponding to abnormality described on recent chest radiograph. This is concerning for malignancy. Mild COPD changes Areas of probable scarring as described above Pacemaker The CT scanner at [facility] is accredited by the [employer] and the scans are performed using protocols designed to limit radiation exposure to as low as reasonably achievable to attain images of sufficient resolution adequate for diagnostic evaluation.
[2017-12-25 12:00] VITALS: BP 148/71
--- NOTE | 2017-12-25 13:02 | Consultation ---
History of Present Illness General Date patient seen: Dec 25, 2017 Chief Complaint: Altered Level of Consciousness Present Illness HPI 82-year-old female, presenting with episode of right lower ext weakness. Patient states that she was eating lunch, suddenly felt that her right leg went very numb. States that she was dragging her right foot. Denies any headache, slurred speech, blurry vision. Patient states that a few minutes later she again her strength and sensation back. She had a CXR on admission showing RUL nodule. A CT of chest was done showing a suspicious mass in RUL. Allergies: Coded Allergies: BUPROPION (Verified Allergy, dizziness, 08/09/13) added to allergies by Dr. Rodriguez Medication History Scheduled Ascorbic Acid* (Vitamin C*), 500 MG ORAL weekly, (Reported) Atorvastatin Calcium* (Atorvastatin Calcium*), 20 MG ORAL BEDTIME, (Reported) Carvedilol* (Carvedilol*), 6.25 MG ORAL EVERY 12 HOURS, (Reported) Divalproex Sodium (Depakote), 250 MG PO qhs, (Reported) Fish Oil/Dha/Epa (Fish Oil 1,200 Mg Fish Oil), 1 EACH PO bid, (Reported) Fluoxetine Hcl* (Prozac*), 30 MG ORAL QHS, (Reported) Levothyroxine Sodium* (Levothyroxine Sodium*), 25 MCG ORAL DAILY, (Reported) Pantoprazole* (Protonix*), 40 MG ORAL DAILY, (Reported) Quetiapine Fumarate* (Seroquel*), 100 MG ORAL hs, (Reported) Tiotropium [place]* (Spiriva*), 1 PUFF INH DAILY, (Reported) Vitamin B Complex (Vitamin B Complex), 1 CAP ORAL daily, (Reported) Patient History Healthcare decision maker Resuscitation status Advanced Directive on File Past Medical/Surgical History Past Medical/Surgical History: (1) TIA (transient ischemic attack) (2) Pacemaker Review of Systems Constitutional: Reports: malaise, weakness Eye: Reports: no symptoms ENT: Reports: no symptoms Physical Exam General Appearance: WD/WN, no apparent distress Lines, tubes and drains: peripheral HEENT: normocephalic, atraumatic Neck: non-tender, normal alignment Respiratory/Chest: chest wall non-tender, lungs clear Breasts: no masses Cardiovascular/Chest: normal peripheral pulses Abdomen: normal bowel sounds, non tender Genitourinary/Rectal: normal genital exam Extremities: normal range of motion Skin Exam: normal pigmentation Neurologic: head rose grower II-XII grossly normal Last 24 Hour Vital Signs Date Time Temp Pulse Resp B/P (MAP) Pulse Ox O2 Delivery O2 Flow Rate FiO2 12/25/17 10:14 75 158/79 12/25/17 10:14 75 158/79 12/25/17 08:00 97.9 75 18 158/49 99 Room Air 97.9 12/25/17 04:00 96.9 62 20 120/72 90 Room Air 96.9 12/25/17 04:00 60 12/25/17 00:00 98.2 61 20 129/58 93 Room Air 98.2 12/25/17 00:00 60 12/24/17 21:21 61 140/65 12/24/17 20:00 60 12/24/17 20:00 97.0 61 21 140/65 93 Room Air 97.0 12/24/17 17:01 60 151/80 12/24/17 16:00 61 12/24/17 16:00 97.5 60 19 151/80 95 Room Air 97.5 Intake and Output 12/24/17 12/25/17 19:00 07:00 Intake Total 352 ml 472 ml Balance 352 ml 472 ml Intake Oral 352 ml 472 ml # Voids 1 3 Height (Feet): 5 Height (Inches): 4.00 Weight (Pounds): 150 Medications Current Medications Medications (Trade) Dose Ordered Sig/Najma Route PRN Reason Start Time Stop Time Status Last Admin Dose Admin Acetaminophen (Tylenol) 500 mg Q4H PRN ORAL Mild Pain/Temp > 100.5 12/23/17 19:15 01/22/18 19:14 Amlodipine Besylate (Norvasc) 5 mg BID ORAL 12/24/17 10:15 01/22/18 10:14 12/25/17 10:14 Atorvastatin Calcium (Lipitor) 20 mg BEDTIME ORAL 12/23/17 21:00 01/22/18 20:59 12/24/17 21:21 Carvedilol (Coreg) 6.25 mg EVERY 12 HOURS ORAL 12/23/17 21:00 01/22/18 20:59 12/25/17 10:14 Ceftriaxone Sodium 1 gm/ Sodium Chloride 55 ml @ 110 mls/hr Q24H IVPB 12/23/17 18:00 12/30/17 23:59 12/24/17 17:01 Clopidogrel Bisulfate (Plavix) 75 mg DAILY ORAL 12/24/17 11:15 01/23/18 11:14 12/25/17 10:13 Dextrose/Sodium Chloride 1,000 ml @ 75 mls/hr [id number] IV 12/24/17 10:30 01/23/18 10:29 12/24/17 10:37 Divalproex Sodium (Depakote) 250 mg QHS ORAL 12/23/17 21:00 01/22/18 20:59 12/24/17 21:22 Docusate Sodium (Colace) 100 mg TWICE A DAY ORAL 12/23/17 18:00 01/22/18 17:59 12/25/17 10:13 Hydralazine HCl (Apresoline) 25 mg Q4H PRN ORAL BP over 160 syst 12/23/17 16:45 01/22/18 16:44 Levothyroxine Sodium (Synthroid) 25 mcg DAILY ORAL 12/24/17 09:00 01/23/18 08:59 12/25/17 10:19 Pantoprazole (Protonix) 40 mg DAILY ORAL 12/24/17 09:00 01/23/18 08:59 12/25/17 10:13 Quetiapine Fumarate (SEROquel) 100 mg QHS ORAL 12/24/17 21:00 01/23/18 11:29 12/24/17 21:21 Assessment/Plan Problem List: (1) Lung mass ICD Codes: R91.8 - Other nonspecific abnormal finding of lung field SNOMED: 078282974 (2) Pacemaker ICD Codes: Z95.0 - Presence of cardiac pacemaker SNOMED: 754615756 (3) TIA (transient ischemic attack) ICD Codes: G45.9 - Transient cerebral ischemic attack, unspecified SNOMED: 019992842 (4) CKD (chronic kidney disease) ICD Codes: N18.9 - Chronic kidney disease, unspecified SNOMED: 176044480 Assessment/Plan the lung mass is suspicious enough to warrant a CT guided biopsy. I will discuss with pt or financial services sales representative to plan further care. HOLLAND SMALL Dec 25, 2017 13:02
--- NOTE | 2017-12-25 14:48 | Nephrology Progress Note ---
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 Plan Plan: Renal diet Rocephin- Kidney LIEN: Bilateral slightly small mildly echogenic kidneys suggests medical renal disease Mild right hydronephrosis. Etiology not demonstrated Bilateral renal cysts 84 mL postvoid bladder volume START FLOMAX 2D Echo Left ventricular ejection fraction estimated to be 60-65%. Mild left ventricular hypertrophy. Monitor renal parameters per orders pulm eval Subjective ROS Limited/Unobtainable: No Constitutional: Reports: malaise Objective Objective Last 24 Hour Vital Signs Date Time Temp Pulse Resp B/P (MAP) Pulse Ox O2 Delivery O2 Flow Rate FiO2 12/25/17 12:00 60 12/25/17 12:00 97.5 61 18 148/71 94 Room Air 97.5 12/25/17 10:14 75 158/79 12/25/17 10:14 75 158/79 12/25/17 08:00 97.9 75 18 158/49 99 Room Air 97.9 12/25/17 08:00 63 12/25/17 04:00 96.9 62 20 120/72 90 Room Air 96.9 12/25/17 04:00 60 12/25/17 00:00 98.2 61 20 129/58 93 Room Air 98.2 12/25/17 00:00 60 12/24/17 21:21 61 140/65 12/24/17 20:00 60 12/24/17 20:00 97.0 61 21 140/65 93 Room Air 97.0 12/24/17 17:01 60 151/80 12/24/17 16:00 61 12/24/17 16:00 97.5 60 19 151/80 95 Room Air 97.5 Intake and Output 12/24/17 12/25/17 19:00 07:00 Intake Total 352 ml 472 ml Balance 352 ml 472 ml Intake Oral 352 ml 472 ml # Voids 1 3 Height (Feet): 5 Height (Inches): 4.00 Weight (Pounds): 150 General Appearance: no apparent distress Objective no change YUMIKO LOZDAA Dec 25, 2017 14:48
[2017-12-25] MEDS ORDERED: Tamsulosin 0.4mg cap ORAL ONE (15:00)
[2017-12-25] MEDS ORDERED: NS 275ml ONE (15:40)
[2017-12-25] MEDS ORDERED: Tubing IV Secondary IV ONE (15:40)
[2017-12-25] MEDS ORDERED: D5 1/2NS 1000ml IV ONE (15:40)
[2017-12-25 16:00] VITALS: BP 133/58
[2017-12-25] MEDS: D5 1/2NS 1,000 ML IV SCH (16:03)
[2017-12-25] MEDS: cefTRIAXone 1 GM in NS 55 ML IVPB SCH (17:56)
--- NOTE | 2017-12-25 19:57 | General Progress Note ---
Assessment/Plan Problem List: (1) TIA (transient ischemic attack) ICD Codes: G45.9 - Transient cerebral ischemic attack, unspecified SNOMED: 094905591 (2) Lung mass ICD Codes: R91.8 - Other nonspecific abnormal finding of lung field SNOMED: 141867431 (3) CKD (chronic kidney disease) ICD Codes: N18.9 - Chronic kidney disease, unspecified SNOMED: 116903398 (4) Pacemaker ICD Codes: Z95.0 - Presence of cardiac pacemaker SNOMED: 507569570 Status: progressing Assessment/Plan afebrile vitals stable tia resolved lung mass is chronic cri stable f/u ct for lung mass is slow growing Subjective ROS Limited/Unobtainable: Yes Constitutional: Reports: no symptoms Allergies: Coded Allergies: BUPROPION (Verified Allergy, dizziness, 08/09/13) added to allergies by Dr. Rodriguez Objective Last 24 Hour Vital Signs Date Time Temp Pulse Resp B/P (MAP) Pulse Ox O2 Delivery O2 Flow Rate FiO2 12/25/17 17:57 61 133/58 12/25/17 16:00 61 12/25/17 16:00 97.7 61 18 133/58 93 Room Air 97.7 12/25/17 12:00 60 12/25/17 12:00 97.5 61 18 148/71 94 Room Air 97.5 12/25/17 10:14 75 158/79 12/25/17 10:14 75 158/79 12/25/17 08:00 97.9 75 18 158/49 99 Room Air 97.9 12/25/17 08:00 63 12/25/17 04:00 96.9 62 20 120/72 90 Room Air 96.9 12/25/17 04:00 60 12/25/17 00:00 98.2 61 20 129/58 93 Room Air 98.2 12/25/17 00:00 60 12/24/17 21:21 61 140/65 12/24/17 20:00 60 12/24/17 20:00 97.0 61 21 140/65 93 Room Air 97.0 Intake and Output 12/24/17 12/25/17 19:00 07:00 Intake Total 352 ml 472 ml Balance 352 ml 472 ml Intake Oral 352 ml 472 ml # Voids 1 3 Height (Feet): 5 Height (Inches): 4.00 Weight (Pounds): 150 Neck: supple Cardiovascular: normal rate Respiratory/Chest: lungs clear Abdomen: soft Evon Blakcwood MD Dec 25, 2017 19:57
[2017-12-25 20:00] VITALS: BP 137/67
[2017-12-25] MEDS ORDERED: Tamsulosin 0.4mg cap ORAL SCH (21:00)
[2017-12-25] MEDS: Atorvastatin 20mg tab ORAL SCH (21:04)
--- NOTE | 2017-12-25 21:15 | Progress Note ---
DATE: 12/25/2017 SUBJECTIVE: The patient is calm. Slightly irritable and anxious. The patient is compliant with medications, felt well on Seroquel. MENTAL STATUS EXAMINATION: The patient is alert and oriented times self, place, and situation she is in. Mood is irritable. Affect is flat. Thought process, there is a paucity of thought content. Thought content, no suicidal or homicidal ideations. ASSESSMENT: Bipolar disorder. PLAN: 1. We will continue Seroquel 100 mg at bedtime. 2. We will continue to follow and readjust the medications. Pawel Willis M.D. DR: Ela JOB#: [id number] CC:
--- NOTE | 2017-12-26 00:04 | General Progress Note ---
Assessment/Plan Assessment/Plan 1. Pulmonary nodule noted on chest x-ray. S/P Chest CT scan: 14 x 14 mm mass in the inferolateral right upper lobe, corresponding to abnormality described on recent chest radiograph. --> This is concerning for malignancy. Mild COPD changes. Areas of probable scarring as described above. Pacemaker --> continue to closely monitor for improvement. 3. Pacemaker placement. Monitor per Cardiology. 4. Acute kidney injury/chronic kidney disease, creatinine currently 2.7. 5. Hypothyroidism. 6. Pulmonary evaluation. Subjective Date patient seen: Dec 25, 2017 Constitutional: Denies: no symptoms, chills, diaphoresis, fever, malaise, weakness, other HEENT: Denies: no symptoms, eye pain, blurred vision, tearing, double vision, ear pain, ear discharge, nose pain, nose congestion, throat pain, throat swelling, mouth pain, mouth swelling, other Cardiovascular: Denies: no symptoms, chest pain, edema, irregular heart rate, lightheadedness, palpitations, syncope, other Respiratory: Denies: no symptoms, cough, orthopnea, shortness of breath, SOB with excertion, SOB at rest, sputum, stridor, wheezing, other Gastrointestinal/Abdominal: Denies: no symptoms, abdomen distended, abdominal pain, black stools, tarry stools, blood in stool, constipated, diarrhea, difficulty swallowing, nausea, poor appetite, poor fluid intake, rectal bleeding , vomiting, other Genitourinary: Denies: no symptoms, burning, discharge, frequency, flank pain, hematuria, incontinence, pain, urgency, other Allergies: Coded Allergies: BUPROPION (Verified Allergy, dizziness, 08/09/13) added to allergies by Dr. Rodriguez Subjective S/P chest CT. No major events overnight. Objective Last 24 Hour Vital Signs Date Time Temp Pulse Resp B/P (MAP) Pulse Ox O2 Delivery O2 Flow Rate FiO2 12/25/17 21:05 70 137/67 12/25/17 20:00 61 12/25/17 20:00 98.2 60 20 137/67 93 Room Air 98.2 12/25/17 17:57 61 133/58 12/25/17 16:00 61 12/25/17 16:00 97.7 61 18 133/58 93 Room Air 97.7 12/25/17 12:00 60 12/25/17 12:00 97.5 61 18 148/71 94 Room Air 97.5 12/25/17 10:14 75 158/79 12/25/17 10:14 75 158/79 12/25/17 08:00 97.9 75 18 158/49 99 Room Air 97.9 12/25/17 08:00 63 12/25/17 04:00 96.9 62 20 120/72 90 Room Air 96.9 12/25/17 04:00 60 Intake and Output 12/25/17 12/26/17 19:00 07:00 Intake Total 730 ml Balance 730 ml Intake Oral 730 ml # Voids 5 Height (Feet): 5 Height (Inches): 4.00 Weight (Pounds): 150 Hakeem Barnhart Dec 26, 2017 00:04
[2017-12-26] MEDS: D5 1/2NS 1,000 ML IV SCH (02:50)
[2017-12-26 04:00] VITALS: BP 145/65
[2017-12-26 08:00] VITALS: BP 134/65
[2017-12-26 08:08] LABS: BASOPHILS % (AUTO) 1.1 % (0.0-2.0); EOSINOPHILS % (AUTO) 2.6 % (0.0-3.0); HEMATOCRIT 34.6 % (37.0-47.0); HEMOGLOBIN 11.9 G/DL (12.0-16.0); LYMPHOCYTES % (AUTO) 25.9 % (20.0-45.0); MEAN CORPUSCULAR VOLUME 90 FL (80-99); MONOCYTES % (AUTO) 10.7 % (1.0-10.0); NEUTROPHILS % (AUTO) 59.6 % (45.0-75.0); PLATELET COUNT 193 K/UL (150-450); RED BLOOD COUNT 3.83 M/UL (4.20-5.40); WHITE BLOOD COUNT 7.2 K/UL (4.8-10.8)
[2017-12-26 08:32] LABS: ALANINE AMINOTRANSFERASE 17 U/L (12-78); ALBUMIN/GLOBULIN RATIO 0.9 (1.0-2.7); ALKALINE PHOSPHATASE 84 U/L (46-116); ANION GAP 8 mmol/L (5-15); ASPARTATE AMINO TRANSFERASE 18 U/L (15-37); BILIRUBIN,TOTAL 0.2 MG/DL (0.2-1.0); BLOOD UREA NITROGEN 38 mg/dL (7-18); CARBON DIOXIDE 24 MMOL/L (21-32); CHLORIDE 107 MMOL/L (98-107); CREATININE 2.7 MG/DL (0.55-1.30); PHOSPHORUS 4.2 MG/DL (2.5-4.9); POTASSIUM 4.6 MMOL/L (3.5-5.1); SODIUM 139 MMOL/L (136-145)
[2017-12-26] MEDS: Carvedilol 6.25mg Tab ORAL SCH (09:34)
[2017-12-26] MEDS: Docusate 100mg cap ORAL SCH (09:35)
[2017-12-26] MEDS: Levothyroxine 25mcg tab ORAL SCH (09:35)
[2017-12-26 12:00] VITALS: BP 136/63
--- NOTE | 2017-12-29 11:03 | Discharge Summary ---
Discharge Summary Hospital Course Date of Admission Dec 23, 2017 at 14:21 Date of Discharge Dec 26, 2017 at 13:00 Admitting Diagnosis TIA HPI Teresa Nagel is a 82 year old female who was admitted on Dec 23, 2017 at 14 :21 for Transient Ischemic Attack Hospital Course dc summary #[id number] Discharge Medications Continued Medications: Ascorbic Acid* (Vitamin C*) 500 Mg Tablet 500 MG ORAL weekly, #30 TAB 0 Refills Atorvastatin Calcium* (Atorvastatin Calcium*) 20 Mg Tablet 20 MG ORAL BEDTIME, TAB Carvedilol* (Carvedilol*) 6.25 Mg Tablet 6.25 MG ORAL EVERY 12 HOURS, TAB Divalproex Sodium (Depakote) 500 Mg Tabec 250 MG PO qhs, TAB Fish Oil/Dha/Epa (Fish Oil 1,200 Mg Fish Oil) 1 Each Capsule 1 EACH PO bid, CAP Fluoxetine Hcl* (Prozac*) 40 Mg Capsule 30 MG ORAL QHS, CAP Levothyroxine Sodium* (Levothyroxine Sodium*) 25 Mcg Tablet 25 MCG ORAL DAILY, TAB Take in the morning on an empty stomach, at least 30 minutes before food. Pantoprazole* (Protonix*) 40 Mg Tablet.dr 40 MG ORAL DAILY, TAB Quetiapine Fumarate* (Seroquel*) 100 Mg Tablet 100 MG ORAL hs, TAB Tiotropium Bonsall* (Spiriva*) 18 Mcg Cap.w.dev 1 PUFF INH DAILY, EA Vitamin B Complex (Vitamin B Complex) 1 Each Capsule 1 CAP ORAL daily, CAP 0 Refills Discharge Condition Upon Discharge: stable Discharge Disposition Patient was discharged to Home with Home Health(06) Discharge Diagnoses: Discharge Instructions Discharge Instructions Special Instructions I have been assigned to complete a D/C Summary on this account. I was not involved in the patient management Micaela Gonzalez NP ([place]te[place]) Dec 29, 2017 11:03
--- NOTE | 2017-12-29 22:15 | Discharge Summary 2 SIG ---
DATE OF ADMISSION: 12/23/2017 DATE OF DISCHARGE: 12/26/2017 REASON FOR ADMISSION: 82-year-old female with past medical history of chronic renal insufficiency, hyperlipidemia, mood disorder, hypothyroidism, GERD, psychosis, pacemaker, and hypertension, presented to emergency department with sudden episode of right lower extremity weakness. While eating she suddenly felt that her right leg went numb. She was dragging her right foot. She denied headache, slurred speech, blurry vision. The patient reported that after few minutes she noted her strength and sensation came back. No other complaints. CT of the head revealed no acute intracranial pathology. BUN - 39 and creatinine -2.7. Chest x-ray revealed a solitary pulmonary nodule in the right peripheral mid lung. The patient was admitted for further management with diagnosis of transient ischemic attack, chronic kidney disease, and pulmonary nodule. HOSPITAL COURSE: The patient admitted. Pulmonology. nephrology, oncology and psychiatric consults were requested. Supplemental oxygen and pulmonary toilet provided as needed. Pulse oximetry was stable on the room air. Chest CT was done for further workup of the pulmonary nodule. It revealed 14 x 14 mm mass in the inferior lateral periphery of the right upper lung with with concern for malignancy, mild COPD changes, and pacemaker. Electrical Engineer recommended to have CT-guided biopsy of lung mass, which was discussed with the patient. However, she declined to have procedure at this time. Neurologist closely followed the patient. Per neurologist, the patient had a transient ischemic attack with left middle cerebral artery distribution which resolved. The patient also had right knee osteoarthritis and ischemic cerebrovascular disease. Lipid panel revealed elevated total cholesterol and LDL. Neurologist started on Plavix and statin, and stressed importance of compliance with medication regimen. Blood pressure was managed with calcium channel guanako and hydralazine as needed. Blood pressures stabilized. Echocardiogram revealed preserved ejection fraction of 60% to 65%, right ventricular systolic pressure of 34, no wall motion abnormalities. Troponin x2 was negative. Patient was working with physical and occupational therapists. Renal ultrasound revealed bilateral mild echogenic kidneys consistent with medical renal disease. Electrolytes were closely monitored and corrected as needed. Nephrotoxins were avoided. TSH was within normal limits. Current dose of levothyroxine was continued. Psychiatrist seen and evaluated the patient and diagnosed the patient with bipolar disorder and depression. Psychiatric medication regimen was optimized. The patient was stable for discharge home with the home health services. FINAL DIAGNOSES: 1. Left middle cerebral artery distribution transient ischemic attack, resolved. 2. Lung mass. 3. Hypertensive kidney and heart disease. 4. Chronic kidney disease. 5. Pacemaker. 6. Right knee osteoarthritis. 7. Ischemic cerebrovascular disease. 8. Hyperlipidemia. 9. Bipolar disorder. 10. Depression. 11. Hypothyroidism. DISCHARGE MEDICATIONS: See medication reconciliation list. DISCHARGE INSTRUCTIONS: The patient discharged home with home health services. Followup with the primary care provider. Evon Blackwood M.D. I have been assigned to dictate discharge summary on this account and I was not involved in the patient's management. Micaela MunsonFrench Hospitalaneta N.PMaranda DR: Td JOB#: [id number] CC: EMELIA
== END 2017-12-26 13:00 | disposition home health service (06) | DRG 69 ==
LOC: EMR 14:15 → 2E 14:21 → EDBEDREQ 15:06 → EDBEDREQSVC 15:39
DX: G45.9 Transient cerebral ischemic attack, unspecified (principal); N17.9 Acute kidney failure, unspecified; I66.02 Occlusion and stenosis of left middle cerebral artery; I13.10 Hypertensive heart and chronic kidney disease without heart failure, with stage 1 through stage 4 chronic kidney disease, or unspecified chronic kidney disease; I67.82 Cerebral ischemia; N18.9 Chronic kidney disease, unspecified; Z95.0 Presence of cardiac pacemaker; E03.9 Hypothyroidism, unspecified; E78.5 Hyperlipidemia, unspecified; K21.9 Gastro-esophageal reflux disease without esophagitis; Z88.8 Allergy status to other drugs, medicaments and biological substances; F17.200 Nicotine dependence, unspecified, uncomplicated; F31.9 Bipolar disorder, unspecified; M17.11 Unilateral primary osteoarthritis, right knee; F32.9 Major depressive disorder, single episode, unspecified; R91.8 Other nonspecific abnormal finding of lung field; R91.1 Solitary pulmonary nodule
CPT/HCPCS: 36415; 70450; 71045; 71250; 74230; 76770; 76775; 80053; 80061; 81003; 82977; 83036; 83735; 83880; 84100; 84300; 84443; 84484; 84550; 85025; 85610; 85730; 86140; 87086; 89050; 93005; 93306; 93880; 99285